=== PATIENT | male | born 1985 | race Two or more races ===

== ENCOUNTER → 2025-05-12 | Outpatient (CLI) | payer MEDICAID, SELFPAY ==
--- NOTE | 2025-05-12 15:38 | XR_ITS ---
EXAMINATION: PA lateral chest 2 views TECHNIQUE: Upright PA lateral chest 2 views Date and time: May 12, 2025, 1543 hours INDICATIONS: Right-sided chest pain and tachycardia today FINDINGS: Normal heart size The lungs are clear. Moderate osteopenia IMPRESSION: No active disease
== END | disposition home or self-care (01) ==
LOC: CDIM 15:24
PROVIDERS: PCP Internal Medicine; Referring Provider Internal Medicine; Visit Provider Internal Medicine
DX: R07.9 Chest pain, unspecified (principal)
CPT/HCPCS: 71046